=== PATIENT | male | born 1975 | race Caucasian/White ===

== ENCOUNTER 2017-09-10 08:35 | Outpatient (RCR) | payer OTHER ==
[2017-08-31 08:03] VITALS: BP 117/78
[2017-08-31 08:21] LABS: PLATELET COUNT, AUTOMATED 188 K/uL (150-450)
[~2017-09-10] VITALS: Ht 175.3 cm; Wt 94.0 kg
[~2017-09-10 08:35] MED LIST: AUG875 PO; AZIT-17 PO; BOSU500T PO; ESC10 FT; ESCI20TA38 PO; KET10 PO; LORA-1455 PO; SERT-173 PO
[2017-09-10 08:42] VITALS: BP 104/79
--- NOTE | 2017-09-11 17:31 | ONCOLOGY FOLLOW UP NOTE ---
EVENT DATE: September 10, 2017 DIAGNOSIS Chronic myelogenous leukemia. CHIEF COMPLAINT The patient is here today for follow up of his CML. HEMATOLOGY HISTORY The patient is a 41-year-old male, who is in very good health, except for that hypoglycemic episode since childhood. He is also having some dyspnea and has maintained on Zoloft for that. He presented with weight loss of approximally 20 pounds over a two month period, night sweats, fatigue and discomfort in the left upper quadrant. The patient visited Dr. Patel in [place], who did a blood count for a white count, which came back over 340,000. His spleen was also palpable at that time, during clinic examination, by Dr. Patel. The patient was sent for further evaluation and management. PCR of the BCR-ABL rearrangement came back positive, confirming the diagnosis of chronic myelogenous leukemia (CML). The patient was started on treatment with Tasigna 300 mg PO twice daily on 02/05/2011. The patient developed resistance to Tasigna after initially complete molecular remission. He developed the resistance in three months after achieving the remission. Sprycel was started on 11/23/2011. The patient continued to show progression of the BCR-ABL rearrangement by PCR, despite the use of Sprycel. The patient was started on high dose Gleevec 400 mg twice daily on 02/11/2012. The patient tried ponatinib 45 mg daily without response. He started treatment with bosutinib 500 mg daily on November 04, 2012. HISTORY OF PRESENT ILLNESS Patient is here today for followup of his CML. He is doing fine currently, except for generalized joint pains involving mainly the hands, the elbows, the knees and ankles. PAST MEDICAL HISTORY 1. Sinus problems. 2. Dyspnea. 3. Hypoglycemic episode since childhood. PAST SURGICAL HISTORY Jaidene fixed in 1974. SOCIAL HISTORY The patient is single. He does not have any children. 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 He was exposed to chloroform in the past. He denies any abuse of tobacco, alcohol, or drugs. FAMILY HISTORY His mother has a history of lymphoma, under treatment at our clinic. MEDICATIONS 1. Lexapro 20 mg daily. 2. Bosutinib 500 mg daily. ALLERGIES ATROPINE, FROM WHICH HE ALMOST . REVIEW OF SYSTEMS CONSTITUTIONAL: No appetite or weight change. No fever, chills or sweating. No recent infection. HEENT: Ears: No tinnitus or hearing problem. Nose: He has nasal discharge. Throat: No sore throat or mouth ulcers. Eyes: No diplopia or visual changes. RESPIRATORY: No shortness of breath. He has some dry cough from recovering cold. No expectoration or hemoptysis. CARDIOVASCULAR: No chest pain, orthopnea, or paroxysmal nocturnal dyspnea (PND) . No edema. No palpitations. GASTROINTESTINAL: The patient has occasional diarrhea. GENITOURINARY: No hematuria or dysuria. MUSCULOSKELETAL: Patient has generalized joint pains, mainly in the hands, elbows, knees, and ankles. NEUROLOGICAL: No tingling or numbness in the hands or feet. No headaches or convulsions. HEMATOLOGIC/LYMPHATIC: He is weak, tired, and fatigued. SKIN: No skin rash or lumps. PSYCHIATRIC: No anxiety or depression. PHYSICAL EXAMINATION GENERAL: Looks stable. Well developed, well nourished, and in no acute distress. VITAL SIGNS: Blood pressure 104/79, pulse 69 per minute, respirations 16 per minute, temperature 98.3, pulse ox 96% on room air. HEENT: Head: Atraumatic. No sinus tenderness to palpation. Eyes: No icterus or conjunctivitis. Mouth and throat: No oral thrush or mucositis. NECK: Supple. No cervical or supraclavicular lymphadenopathy. LUNGS: Clear to auscultation and percussion bilaterally. HEART: Regular rate and rhythm. No gallops, murmurs, clicks or rubs. ABDOMEN: Soft and lax. No tenderness. No hepatosplenomegaly. No masses. EXTREMITIES: No cyanosis, clubbing or edema. LYMPHATICS: No peripheral lymphadenopathy. NEUROLOGICAL: Conscious, alert and oriented times three. No focal motor or sensory deficits. PSYCHIATRIC: Mood and affect appear normal. SKIN: No skin rash, bruise or purpuric eruption. DIAGNOSTIC DATA CBC showed white count 4.9, hemoglobin 18, hematocrit 51.6, platelets 188,000. Chem panel is totally normal, except blood sugar 130. Quantitative PCR for BCR- ABL transcript was 0. ASSESSMENT Chronic myelogenous leukemia with positive BCR-ABL transcript. Bone marrow aspiration biopsy confirmed the diagnosis of chronic phase of CML. Patient started treatment with Tasigna February 05, 2011, and he achieved complete hematologic remission within a month and complete molecular remission in three months, but unfortunately three months after that he developed reappearance of the BCR-ABL transcript by PCR. Patient tried Sprycel without improvement. He started high-dose Gleevec 400 mg twice daily February 11, 2012, and he stopped the treatment July 2014 because of the side effects. Patient started ponatinib 45 mg daily, but without improvement. He started bosutinib 500 mg daily October 2014 and he achieved complete molecular remission by quantitative PCR. I am planning to continue bosutinib 500 mg daily. I will see him again in three months with CBC, chem panel, quantitative PCR for BCR-ABL transcript. PLAN 1. Bosutinib 500 mg daily. 2. Patient to return in 3 months with CBC, chem panel, quantitative PCR for BCR -ABL transcript. 3. Patient to contact us for any new concern or complaints. MTDD
== END 2017-09-17 14:52 | disposition home or self-care (01) ==
LOC: ONC 08:35
PROVIDERS: ATTEND Internal Medicine Hematology
DX: C92.11 Chronic myeloid leukemia, BCR/ABL-positive, in remission (principal); R06.00 Dyspnea, unspecified; Z79.899 Other long term (current) drug therapy; R53.1 Weakness; R53.83 Other fatigue; R05 Cough
CPT/HCPCS: 36415; 82040; 82247; 82310; 82374; 82435; 82565; 82947; 84075; 84132; 84155; 84295; 84450; 84460; 84520; 85025; 99212

== ENCOUNTER 2017-12-31 08:38 | Outpatient (RCR) | payer OTHER ==
[2017-11-29 08:11] VITALS: BP 123/74
[2017-11-29 08:23] LABS: PLATELET COUNT, AUTOMATED 179 K/uL (150-450)
[2017-12-31 09:10] VITALS: BP 114/75
--- NOTE | 2017-12-31 16:13 | ONCOLOGY FOLLOW UP NOTE ---
EVENT DATE: December 31, 2017 DIAGNOSIS Chronic myelogenous leukemia. CHIEF COMPLAINT The patient is here today for follow up of his CML. HEMATOLOGY HISTORY The patient is a 42-year-old male, who is in very good health, except for that hypoglycemic episode since childhood. He is also having some dyspnea and has maintained on Zoloft for that. He presented with weight loss of approximally 20 pounds over a two month period, night sweats, fatigue and discomfort in the left upper quadrant. The patient visited Dr. Patel in [place], who did a blood count for a white count, which came back over 340,000. His spleen was also palpable at that time, during clinic examination, by Dr. Patel. The patient was sent for further evaluation and management. PCR of the BCR-ABL rearrangement came back positive, confirming the diagnosis of chronic myelogenous leukemia (CML). The patient was started on treatment with Tasigna 300 mg PO twice daily on 02/05/2011. The patient developed resistance to Tasigna after initially complete molecular remission. He developed the resistance in three months after achieving the remission. Sprycel was started on 11/23/2011. The patient continued to show progression of the BCR-ABL rearrangement by PCR, despite the use of Sprycel. The patient was started on high dose Gleevec 400 mg twice daily on 02/11/2012. The patient tried ponatinib 45 mg daily without response. He started treatment with bosutinib 500 mg daily on November 04, 2012. HISTORY OF PRESENT ILLNESS Patient is here today for followup of his CML. He is doing fine currently, apart from having chronic joint pains mainly in the wrists, hands, right elbow, knees and ankles. Patient does not have any other complaint and he is tolerating treatment with bosutinib very well. PAST MEDICAL HISTORY 1. Sinus problems. 2. Dyspnea. 3. Hypoglycemic episode since childhood. PAST SURGICAL HISTORY Hammertoe fixed in 1974. SOCIAL HISTORY The patient is single. He does not have any children. 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 He was exposed to chloroform in the past. He denies any abuse of tobacco, alcohol, or drugs. FAMILY HISTORY His mother has a history of lymphoma, under treatment at our clinic. MEDICATIONS 1. Lexapro 20 mg daily. 2. Bosutinib 500 mg daily. ALLERGIES ATROPINE, from which he almost . REVIEW OF SYSTEMS CONSTITUTIONAL: No appetite or weight change. No fever, chills or sweating. No recent infection. HEENT: Ears: No tinnitus or hearing problem. Nose: He has nasal discharge. Throat: No sore throat or mouth ulcers. Eyes: No diplopia or visual changes. RESPIRATORY: No shortness of breath. He has some dry cough from recovering cold. No expectoration or hemoptysis. CARDIOVASCULAR: No chest pain, orthopnea, or paroxysmal nocturnal dyspnea (PND) . No edema. No palpitations. GASTROINTESTINAL: The patient has occasional diarrhea. GENITOURINARY: No hematuria or dysuria. MUSCULOSKELETAL: Patient has pain in the joints, mainly the wrists, the hands, the right elbow, the knees and ankles. NEUROLOGICAL: No tingling or numbness in the hands or feet. No headaches or convulsions. HEMATOLOGIC/LYMPHATIC: He is weak, tired, and fatigued. SKIN: No skin rash or lumps. PSYCHIATRIC: No anxiety or depression. PHYSICAL EXAMINATION GENERAL: Looks stable. Well developed, well nourished, and in no acute distress. VITAL SIGNS: Blood pressure 114/75, pulse 54 per minute, respirations 16 per minute, temperature 98.1, pulse ox 95% on room air. HEENT: Head: Atraumatic. No sinus tenderness to palpation. Eyes: No icterus or conjunctivitis. Mouth and throat: No oral thrush or mucositis. NECK: Supple. No cervical or supraclavicular lymphadenopathy. LUNGS: Clear to auscultation and percussion bilaterally. HEART: Regular rate and rhythm. No gallops, murmurs, clicks or rubs. ABDOMEN: Soft and lax. No tenderness. No hepatosplenomegaly. No masses. EXTREMITIES: No cyanosis, clubbing or edema. LYMPHATICS: No peripheral lymphadenopathy. NEUROLOGICAL: Conscious, alert and oriented times three. No focal motor or sensory deficits. PSYCHIATRIC: Mood and affect appear normal. SKIN: No skin rash, bruise or purpuric eruption. DIAGNOSTIC DATA CBC showed white count 5.3, hemoglobin 16.8, hematocrit 47.8, platelets 179, 000. Chem panel is totally normal. Quantitative PCR for BCR-ABL rearrangement was negative. ASSESSMENT Chronic myelogenous leukemia with positive BCR-ABL transcript. Bone marrow aspiration biopsy confirmed the diagnosis of chronic phase of CML. Patient started treatment with Tasigna February 05, 2011, and he achieved complete hematologic remission within a month and complete molecular remission in three months, but unfortunately three months after that he developed reappearance of the BCR-ABL transcript by PCR. Patient tried Sprycel without improvement. He started high-dose Gleevec 400 mg twice daily February 11, 2012, and he stopped the treatment July 2014 because of the side effects. Patient started ponatinib 45 mg daily, but without improvement. He started bosutinib 500 mg daily October 2014 and he achieved complete molecular remission by quantitative PCR. I am planning to continue the same dose of bosutinib 500 mg daily. I will see him again in three months with CBC, chem panel and quantitative PCR for BCR-ABL transcript. PLAN 1. Bosutinib 500 mg daily. 2. Patient to return in 3 months with CBC, chem panel, quantitative PCR for BCR -ABL transcript. 3. Patient to contact us for any new concern or complaints. MTDD
== END 2018-01-14 09:53 | disposition home or self-care (01) ==
LOC: ONC 08:38
PROVIDERS: ATTEND Internal Medicine Hematology
DX: C92.10 Chronic myeloid leukemia, BCR/ABL-positive, not having achieved remission (principal); R06.00 Dyspnea, unspecified
CPT/HCPCS: 36415; 82040; 82247; 82310; 82374; 82435; 82565; 82947; 84075; 84132; 84155; 84295; 84450; 84460; 84520; 85025; 99212

== ENCOUNTER 2018-06-23 07:40 | Outpatient (RCR) | payer OTHER ==
[2018-03-28 08:33] VITALS: BP 123/75
[2018-03-28 09:06] LABS: PLATELET COUNT, AUTOMATED 182 K/uL (150-450)
[2018-04-08 08:18] VITALS: BP 104/70
--- NOTE | 2018-04-08 13:15 | [facility] ONCOLOGY NOTE ---
EVENT DATE: April 08, 2018 DIAGNOSES Chronic myelogenous leukemia. CHIEF COMPLAINT Patient is here today for followup of his CML. HEMATOLOGY HISTORY The patient is a 42-year-old male, who is in very good health, except for that hypoglycemic episode since childhood. He is also having some dyspnea and has maintained on Zoloft for that. He presented with weight loss of approximally 20 pounds over a two month period, night sweats, fatigue and discomfort in the left upper quadrant. The patient visited Dr. Patel in [place], who did a blood count for a white count, which came back over 340,000. His spleen was also palpable at that time, during clinic examination, by Dr. Patel. The patient was sent for further evaluation and management. PCR of the BCR-ABL rearrangement came back positive, confirming the diagnosis of chronic myelogenous leukemia (CML). The patient was started on treatment with Tasigna 300 mg PO twice daily on 02/05/2011. The patient developed resistance to Tasigna after initially complete molecular remission. He developed the resistance in three months after achieving the remission. Sprycel was started on 11/23/2011. The patient continued to show progression of the BCR-ABL rearrangement by PCR, despite the use of Sprycel. The patient was started on high dose Gleevec 400 mg twice daily on 02/11/2012. The patient tried ponatinib 45 mg daily without response. He started treatment with bosutinib 500 mg daily on November 04, 2012. HISTORY OF PRESENT ILLNESS The patient is here today for followup of his CML. He is doing fine currently, and he is complaining only of pain in his hands, wrists, and ankles, which is chronic for him. PAST MEDICAL HISTORY 1. Sinus problems. 2. Dyspnea. 3. Hypoglycemic episode since childhood. PAST SURGICAL HISTORY Jaidene fixed in 1974. SOCIAL HISTORY The patient is single. He does not have any children. 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 He was exposed to chloroform in the past. He denies any abuse of tobacco, alcohol, or drugs. FAMILY HISTORY His mother has a history of lymphoma, under treatment at our clinic. MEDICATIONS 1. Lexapro 20 mg daily. 2. Bosutinib 500 mg daily. ALLERGIES ATROPINE, from which he almost . REVIEW OF SYSTEMS CONSTITUTIONAL: No appetite or weight change. No fever, chills or sweating. No recent infection. HEENT: Ears: No tinnitus or hearing problem. Nose: No nasal discharge or epistaxis. Throat: No sore throat or mouth ulcers. Eyes: No diplopia or visual changes. RESPIRATORY: No shortness of breath. No cough, expectoration or hemoptysis. CARDIOVASCULAR: No chest pain, orthopnea, or paroxysmal nocturnal dyspnea (PND). No edema. No palpitations. GASTROINTESTINAL: No nausea or vomiting. No diarrhea or constipation. No change in bowel movements. No heartburn or swallowing difficulties. No abdominal pain. No jaundice. No hematemesis, melena or rectal bleeding. GENITOURINARY: No hematuria or dysuria. MUSCULOSKELETAL: He has pain in the hands, wrists, and ankle. NEUROLOGICAL: No tingling or numbness in the hands or feet. No headaches or convulsions. HEMATOLOGIC/LYMPHATIC: No bleeding or easy bruising. No weakness or fatigued. No enlarged lymph nodes. SKIN: No skin rash or lumps. PSYCHIATRIC: No anxiety or depression. PHYSICAL EXAMINATION GENERAL: Looks stable. Well-developed, well-nourished, and in no acute distress. VITAL SIGNS: Blood pressure 104/70, pulse 64 per minute, respirations 16 per minute, temperature 97.7, pulse oximetry 96% on room air. HEENT: Head: Atraumatic. No sinus tenderness to palpation. Eyes: No icterus or conjunctivitis. Mouth and throat: No oral thrush or mucositis. NECK: Supple. No cervical or supraclavicular lymphadenopathy. LUNGS: Clear to auscultation and percussion bilaterally. HEART: Regular rate and rhythm. No gallops, murmurs, clicks or rubs. ABDOMEN: Soft and lax. No tenderness. No hepatosplenomegaly. No masses. EXTREMITIES: No cyanosis, clubbing or edema. LYMPHATICS: No peripheral lymphadenopathy. NEUROLOGICAL: Conscious, alert and oriented times three. No focal motor or sensory deficits. PSYCHIATRIC: Mood and affect appear normal. SKIN: No skin rash, bruise or purpuric eruption. DIAGNOSTIC/LABORATORY STUDIES CBC showed a white count of 5.6, hemoglobin 17.5, hematocrit 50.6, platelets 182,000. ASSESSMENT 1. 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 Bone marrow aspiration and biopsy confirming the diagnosis of chronic phase of CML. Patient started treatment with Tasigna, February 05, 2011, and he achieved complete hematologic remission within a month, and complete molecular remission in three months, but unfortunately, three months after that, he developed reappearance of the BCR-ABL transcript by PCR. Patient tried Sprycel without improvement. He used high-dose Gleevec 400 mg twice daily, February 11, 2012, and he stopped the treatment July 2014 because of the side effects. Patient started ponatinib 45 mg daily, but without improvement. He started bosutinib 500 mg daily October 2014, and he achieved complete molecular remission by quantitative PCR, which is still negative this visit. I am planning to continue the same treatment of bosutinib 500 mg daily. I will see him again in three months with CBC, chem panel, and quantitative PCR for BCR-ABL transcript. PLAN 1. Bosutinib 500 mg daily. 2. Patient to return in three months with CBC, chem panel, and quantitative PCR for BCR-ABL transcript. 3. Patient to contact us for any new concern or complaints. MTDD
[2018-06-06 09:26] VITALS: BP 127/67
[2018-06-06 10:00] LABS: PLATELET COUNT, AUTOMATED 195 K/uL (150-450)
[2018-06-23 08:05] VITALS: BP 109/72
--- NOTE | 2018-06-23 09:09 | [facility] ONCOLOGY NOTE ---
EVENT DATE: June 23, 2018 DIAGNOSES Chronic myelogenous leukemia. CHIEF COMPLAINT Patient is here today for followup of his CML. HEMATOLOGY HISTORY The patient is a 42-year-old male, who is in very good health, except for that hypoglycemic episode since childhood. He is also having some dyspnea and has maintained on Zoloft for that. He presented with weight loss of approximally 20 pounds over a two month period, night sweats, fatigue and discomfort in the left upper quadrant. The patient visited Dr. Patel in [place], who did a blood count for a white count, which came back over 340,000. His spleen was also palpable at that time, during clinic examination, by Dr. Patel. The patient was sent for further evaluation and management. PCR of the BCR-ABL rearrangement came back positive, confirming the diagnosis of chronic myelogenous leukemia (CML). The patient was started on treatment with Tasigna 300 mg PO twice daily on February 05, 2011. The patient developed resistance to Tasigna after initially complete molecular remission. He developed the resistance in three months after achieving the remission. Sprycel was started on November 23, 2011. The patient continued to show progression of the BCR-ABL rearrangement by PCR, despite the use of Sprycel. The patient was started on high dose Gleevec 400 mg twice daily on February 11, 2012. The patient tried ponatinib 45 mg daily without response. He started treatment with bosutinib 500 mg daily on November 04, 2012. HISTORY OF PRESENT ILLNESS The patient is here today for followup of his CML. He is doing fine currently except for having some nasal discharge. He continues to have pain in his joints, especially the knees, ankles and hands. Other than that, he is doing really very well. He denies any constitutional symptoms. PAST MEDICAL HISTORY 1. Sinus problems. 2. Dyspnea. 3. Hypoglycemic episode since childhood. PAST SURGICAL HISTORY Jaidene fixed in 1974. SOCIAL HISTORY The patient is single. He does not have any children. 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 He was exposed to chloroform in the past. He denies any abuse of tobacco, alcohol, or drugs. FAMILY HISTORY His mother has a history of lymphoma, under treatment at our clinic. MEDICATIONS 1. Lexapro 20 mg daily. 2. Bosutinib 500 mg daily. ALLERGIES ATROPINE, from which he almost . REVIEW OF SYSTEMS CONSTITUTIONAL: No appetite or weight change. No fever, chills or sweating. No recent infection. HEENT: Ears: No tinnitus or hearing problem. Nose: He has nasal discharge. Throat: No sore throat or mouth ulcers. Eyes: No diplopia or visual changes. RESPIRATORY: No shortness of breath. No cough, expectoration or hemoptysis. CARDIOVASCULAR: No chest pain, orthopnea, or paroxysmal nocturnal dyspnea (PND). No edema. No palpitations. GASTROINTESTINAL: No nausea or vomiting. No diarrhea or constipation. No change in bowel movements. No heartburn or swallowing difficulties. No abdominal pain. No jaundice. No hematemesis, melena or rectal bleeding. GENITOURINARY: No hematuria or dysuria. MUSCULOSKELETAL: He has pain in the knees, ankles and hands. NEUROLOGICAL: No tingling or numbness in the hands or feet. No headaches or convulsions. HEMATOLOGIC/LYMPHATIC: No bleeding or easy bruising. No weakness or fatigued. No enlarged lymph nodes. SKIN: No skin rash or lumps. PSYCHIATRIC: No anxiety or depression. PHYSICAL EXAMINATION GENERAL: Looks stable. Well-developed, well-nourished, and in no acute distress. VITAL SIGNS: Blood pressure 109/72, pulse 66 per minute, respirations 16 per minute, temperature 97.8, pulse oximetry 95% on room air. HEENT: Head: Atraumatic. No sinus tenderness to palpation. Eyes: No icterus or conjunctivitis. Mouth and throat: No oral thrush or mucositis. NECK: Supple. No cervical or supraclavicular lymphadenopathy. LUNGS: Clear to auscultation and percussion bilaterally. HEART: Regular rate and rhythm. No gallops, murmurs, clicks or rubs. ABDOMEN: Soft and lax. No tenderness. No hepatosplenomegaly. No masses. EXTREMITIES: No cyanosis, clubbing or edema. LYMPHATICS: No peripheral lymphadenopathy. NEUROLOGICAL: Conscious, alert and oriented times three. No focal motor or sensory deficits. PSYCHIATRIC: Mood and affect appear normal. SKIN: No skin rash, bruise or purpuric eruption. DIAGNOSTIC/LABORATORY STUDIES CBC showed a white count of 6.6, hemoglobin 17.6, hematocrit 50.6, platelets 195,000. Chem panel totally normal except chloride 111, carbon dioxide 20, blood sugar 26. Other parameters are normal. Quantitative PCR for BCR-ABL transcript is detected near the lower limit of the assay so it is nearly normal and stable. ASSESSMENT 1. 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 Bone marrow aspiration and biopsy confirm the diagnosis of chronic phase CML. Patient started treatment with Tasigna February 05, 2011, and he achieved complete hematologic remission within a month and complete molecular remission in three months but, unfortunately, three months after that he developed reappearance of the BCR-ABL transcript by PCR. Patient tried Sprycel without improvement. He used high-dose Gleevec 400 mg twice daily, February 11, 2012, and he stopped the treatment July 2014 because of the side effects. Patient started ponatinib 45 mg daily, but without improvement. He started bosutinib 500 mg daily October 2014, and he achieved complete molecular remission by quantitative PCR, which is still nearly normal currently. I am planning to continue the same treatment with bosutinib 500 mg daily. I will see him again in three months with CBC, chem panel, and quantitative PCR for BCR-ABL transcript. PLAN 1. Bosutinib 500 mg daily. 2. Patient to return in three months with CBC, chem panel, and quantitative PCR for BCR-ABL transcript. 3. Patient to contact us for any new concern or complaints. MTDD
== END 2018-06-26 ==
LOC: ONC 07:40
PROVIDERS: ATTEND Internal Medicine Hematology
DX: C92.10 Chronic myeloid leukemia, BCR/ABL-positive, not having achieved remission (principal); Z92.21 Personal history of antineoplastic chemotherapy
CPT/HCPCS: 36415; 82040; 82247; 82310; 82374; 82435; 82565; 82947; 84075; 84132; 84155; 84295; 84450; 84460; 84520; 85025; 99212

== ENCOUNTER 2018-09-22 07:41 | Outpatient (RCR) | payer OTHER ==
[2018-09-12 08:29] VITALS: BP 120/77
[2018-09-12 08:35] LABS: PLATELET COUNT, AUTOMATED 171 K/uL (150-450)
[2018-09-12 08:36] VITALS: BP 133/85
[2018-09-22 08:05] VITALS: BP 111/72
--- NOTE | 2018-09-22 12:34 | [facility] ONCOLOGY NOTE ---
EVENT DATE: September 22, 2018 DIAGNOSES Chronic myelogenous leukemia. CHIEF COMPLAINT Patient is here today for followup of his CML. HEMATOLOGY HISTORY The patient is a 43-year-old male, who is in very good health, except for that hypoglycemic episode since childhood. He is also having some dyspnea and has maintained on Zoloft for that. He presented with weight loss of approximally 20 pounds over a two month period, night sweats, fatigue and discomfort in the left upper quadrant. The patient visited Dr. Patel in [place], who did a blood count for a white count, which came back over 340,000. His spleen was also palpable at that time, during clinic examination, by Dr. Patel. The patient was sent for further evaluation and management. PCR of the BCR-ABL rearrangement came back positive, confirming the diagnosis of chronic myelogenous leukemia (CML). The patient was started on treatment with Tasigna 300 mg PO twice daily on February 05, 2011. The patient developed resistance to Tasigna after initially complete molecular remission. He developed the resistance in three months after achieving the remission. Sprycel was started on November 23, 2011. The patient continued to show progression of the BCR-ABL rearrangement by PCR, despite the use of Sprycel. The patient was started on high dose Gleevec 400 mg twice daily on February 11, 2012. The patient tried ponatinib 45 mg daily without response. He started treatment with bosutinib 500 mg daily on November 04, 2012. HISTORY OF PRESENT ILLNESS The patient is here today for followup of his CML. He is doing very well currently. He denies any constitutional symptoms. He has some sinus headache sometimes and he has also joint pain, mostly in the hands, wrists, ankles and feet. PAST MEDICAL HISTORY 1. Sinus problems. 2. Dyspnea. 3. Hypoglycemic episode since childhood. PAST SURGICAL HISTORY Hammertoe fixed in 1974. SOCIAL HISTORY The patient is single. He does not have any children. 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 He was exposed to chloroform in the past. He denies any abuse of tobacco, alcohol, or drugs. FAMILY HISTORY His mother has a history of lymphoma, under treatment at our clinic. MEDICATIONS 1. Lexapro 20 mg daily. 2. Bosutinib 500 mg daily. ALLERGIES ATROPINE, from which he almost . REVIEW OF SYSTEMS CONSTITUTIONAL: No appetite or weight change. No fever, chills or sweating. No recent infection. HEENT: Ears: No tinnitus or hearing problem. Nose: He has nasal discharge. Throat: No sore throat or mouth ulcers. Eyes: No diplopia or visual changes. RESPIRATORY: No shortness of breath. No cough, expectoration or hemoptysis. CARDIOVASCULAR: No chest pain, orthopnea, or paroxysmal nocturnal dyspnea (PND). No edema. No palpitations. GASTROINTESTINAL: No nausea or vomiting. No diarrhea or constipation. No change in bowel movements. No heartburn or swallowing difficulties. No abdominal pain. No jaundice. No hematemesis, melena or rectal bleeding. GENITOURINARY: No hematuria or dysuria. MUSCULOSKELETAL: He has pain in the hands, wrists, ankles and feet. . NEUROLOGICAL: He has sinus headache. HEMATOLOGIC/LYMPHATIC: No bleeding or easy bruising. No weakness or fatigued. No enlarged lymph nodes. SKIN: No skin rash or lumps. PSYCHIATRIC: No anxiety or depression. PHYSICAL EXAMINATION GENERAL: Looks stable. Well-developed, well-nourished, and in no acute distress. VITAL SIGNS: Blood pressure 111/72, pulse 63 per minute, respirations 16 per minute, temperature 97.5, pulse oximetry 97% on room air. HEENT: Head: Atraumatic. No sinus tenderness to palpation. Eyes: No icterus or conjunctivitis. Mouth and throat: No oral thrush or mucositis. NECK: Supple. No cervical or supraclavicular lymphadenopathy. LUNGS: Clear to auscultation and percussion bilaterally. HEART: Regular rate and rhythm. No gallops, murmurs, clicks or rubs. ABDOMEN: Soft and lax. No tenderness. No hepatosplenomegaly. No masses. EXTREMITIES: No cyanosis, clubbing or edema. LYMPHATICS: No peripheral lymphadenopathy. NEUROLOGICAL: Conscious, alert and oriented times three. No focal motor or sensory deficits. PSYCHIATRIC: Mood and affect appear normal. SKIN: No skin rash, bruise or purpuric eruption. DIAGNOSTIC/LABORATORY STUDIES CBC showed white count of 5.3, hemoglobin 16.5, hematocrit 48.3, platelets 171,000. Chem panel totally normal except chloride 109. PCR for BCR-ABL transcript was negative with no PCR BCR-ABL1 transcript detected. ASSESSMENT 1. 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 Bone marrow aspiration and biopsy confirm the diagnosis of chronic phase CML. Patient started treatment with Tasigna February 05, 2011, and he achieved complete hematologic remission within a month and complete molecular remission in three months but, unfortunately, three months after that he developed reappearance of the BCR-ABL transcript by PCR. Patient tried Sprycel without improvement. He used high-dose Gleevec 400 mg twice daily, February 11, 2012, but he stopped the treatment July 2014 because of the side effects. Patient started ponatinib 45 mg daily but without improvement. He started bosutinib 500 mg daily October 2014, and he achieved complete molecular remission by quantitative PCR, which he is still negative for BCR-ABL1 transcript. I am planning to continue the same treatment with bosutinib 500 mg daily. I will see him in three months with CBC, chem panel and PCR for BCR-ABL transcript. PLAN 1. Bosutinib 500 mg daily. 2. Patient to return in three months with CBC, chem panel, quantitative PCR for BCR-ABL transcript. 3. Patient to contact us for any new concern or complaints. MTDD
== END 2018-12-08 ==
LOC: ONC 07:41
PROVIDERS: ATTEND Internal Medicine Hematology
DX: C92.11 Chronic myeloid leukemia, BCR/ABL-positive, in remission (principal); Z79.899 Other long term (current) drug therapy
CPT/HCPCS: 36415; 82040; 82247; 82310; 82374; 82435; 82565; 82947; 84075; 84132; 84155; 84295; 84450; 84460; 84520; 85025; 99212